=== PATIENT | female | born 1945 | race Caucasian/White ===

== ENCOUNTER 2017-11-14 13:53 | Emergency (ER) | payer MEDICARE, OTHER ==
[~2017-11-14] VITALS: Ht 160 cm; Wt 95.2 kg
[2017-11-14] MEDS ORDERED: POTASSIUM CHLO10 ME1 PO (17:32)
[2017-11-14] MEDS ORDERED: ZOLPIDEM TARTRAT5 MG PO (17:32)
[2017-11-14] MEDS ORDERED: DICLOFENAC SOD100 MG PO (17:33)
[2017-11-14] MEDS ORDERED: FUROSEMIDE20 MG PO (17:33)
[2017-11-14] MEDS ORDERED: LEVOTHYROXINE100 MCG PO (17:33)
[2017-11-14] MEDS ORDERED: LORAZEPAM0.5 MG PO (17:33)
[2017-11-14] MEDS ORDERED: TRAMADOL HCL E100 MG PO (17:33)
--- NOTE | 2017-11-15 01:14 | EKG ---
[facility] [address] [facility] [place] [address] Signed Atrial flutter with variable AV block with premature ventricular or aberrantly conducted complexes Nonspecific ST abnormality Abnormal ECG No previous ECGs available Confirmed by HECTOR RASMUSSEN MD ([id number]) on 11/15/2017 1:14:07 AM Electronically Signed By: HECTOR RASMUSSEN MD 11/15/17 0114 PATIENT NAME: BARBARA VERGARA Electrocardiogram DATE OF : 45 PHYSICIAN: HECTOR RASMUSSEN MD REPORT #: [id number] REPORT IS CONFIDENTIAL AND NOT TO BE RELEASED WITHOUT AUTHORIZATION
--- NOTE | 2017-11-15 18:57 | EKG ---
[facility] [address] [facility] [place], [place] [address] Signed Atrial flutter with variable AV block Nonspecific ST and T wave abnormality Abnormal ECG When compared with ECG of 14-NOV-2017 13:58, (Unconfirmed) ST no longer depressed in Inferior leads Nonspecific T wave abnormality now evident in Lateral leads Confirmed by HECTOR RASMUSSEN MD ([id number] on 11/15/2017 6:57:10 PM Electronically Signed By: HECTOR RASMUSSEN MD 11/15/17 1857 PATIENT NAME: BARBARA VERGARA Electrocardiogram DATE OF : 45 PHYSICIAN: HECTOR RASMUSSEN MD REPORT #: [id number] REPORT IS CONFIDENTIAL AND NOT TO BE RELEASED WITHOUT AUTHORIZATION
== END 2017-11-14 17:20 | disposition home or self-care (01) ==
LOC: ED 13:53
DX: I48.91 Unspecified atrial fibrillation (principal); I48.92 Unspecified atrial flutter; I10 Essential (primary) hypertension; Z88.5 Allergy status to narcotic agent
CPT/HCPCS: 80053; 84484; 85025; 93005; 93010; 96361; 96374; 99284; J7040

== ENCOUNTER 2022-01-07 14:31 | Emergency (ER) | payer MEDICARE, OTHER ==
[~2022-01-07] VITALS: Ht 160 cm; Wt 79.7 kg
[~2022-01-07 14:31] MED LIST: DICLOFENAC SOD100 MG PO; FUROSEMIDE20 MG PO; LEVOTHYROXINE100 MCG PO; LORAZEPAM0.5 MG PO; POTASSIUM CHLO10 ME1 PO; TRAMADOL HCL E100 MG PO; ZOLPIDEM TARTRAT5 MG PO
--- OUTSIDE RECORDS SUMMARY | 2022-01-07 14:34 | XMS ---
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 - Patient with suicidal and/or homicidal ideations eloped. - Patient eloped with IV in place. Details: [facility] There are no care providers on record at this time. Carolyn has no Care Guidelines for this patient. E.DJo VISIT COUNT (12 MO.) 2 [facility]. TOTAL 2 NOTE: Visits indicate total known visits. ED/C VISIT TRACKING (12 MO.) 01/07/2022 14:32 [facility] TYPE: Emergency COMPLAINT: - LT ARM INJURY 10/21/2021 13:43 [facility] TYPE: Emergency COMPLAINT: - R HAND PAIN, COLD FINGERS INPATIENT VISIT TRACKING (12 MO.) No inpatient visits to display in this time frame [email or web address]
[2022-01-07] MEDS ORDERED: FLUOXETINE HCL20 MG PO (14:54)
[2022-01-07] MEDS ORDERED: HYDROCODON-ACE1 EA10 PO (16:51)
== END 2022-01-07 17:25 | disposition home or self-care (01) ==
LOC: ED 14:31
DX: S42.212A Unspecified displaced fracture of surgical neck of left humerus, initial encounter for closed fracture (principal); I48.91 Unspecified atrial fibrillation; I10 Essential (primary) hypertension; Z86.718 Personal history of other venous thrombosis and embolism; Z88.5 Allergy status to narcotic agent; Z79.899 Other long term (current) drug therapy; W19.XXXA Unspecified fall, initial encounter
CPT/HCPCS: 73030; 99283-25; A9270